=== PATIENT | male | born 1965 | race Caucasian/White ===

== ENCOUNTER 2019-10-10 17:31 | Inpatient (IN) ==
[2019-10-10] MEDS ORDERED: SOLU-MEDROL IV ONE (17:47)
[2019-10-10] MEDS ORDERED: DUONEB (A & A) INH ONE (17:47)
[2019-10-10] MEDS ORDERED: NS 1,000 ML IV ONE (18:04)
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
--- NOTE | 2019-10-10 18:15 | Diag Imaging Result Doc PS360 ---
EXAM: CHEST-1 VIEW 10/10/2019 HISTORY: Respiratory distress TECHNIQUE: AP portable at 1808 COMMENT: There is increased interstitial markings and pulmonary vascularity. This is worse than on 04/12/2018. IMPRESSION: Mild pulmonary edema. Electronically signed by Johnny Moore 10/10/2019 6:12 PM
[2019-10-10 18:19] LABS: BASO# 0.01 X1000 (0.0-0.2); BASO% 0.1 % (0.0-0.8); EOS# 0.02 X1000 (0.0-0.7); EOS% 0.2 % (0.0-10.0); HEMATOCRIT 37.1 % (42.0-52.0); HEMOGLOBIN 12.4 g/dL (14.0-18.0); IMM GRAN# 0.03 X1000 (0.0-0.04); IMM GRAN% 0.3 % (0.0-0.5); LYMPH# 0.85 X1000 (1.2-3.4); LYMPH% 7.8 % (20.5-51.1); MCH 28.5 PG (27-31); MCHC 33.4 g/dL (33-37); MCV 85.3 FL (81-99); MONO# 1.14 X1000 (0.11-0.59); MONO% 10.4 % (1.7-9.3); MPV 9.4 FL (7.4-10.4); NEUT# 8.88 X1000 (1.4-6.5); NEUT% 81.2 % (42.2-75.2); PLT 232 X1000 (130-400); RBC 4.35 XMIL (4.7-6.1); RDW 12.3 % (11.5-14.5); WBC 10.93 X1000 (4.8-10.8)
[2019-10-10 18:22] LABS: ALLEN TEST NO; BE 0.8 mmoll (-3.0-3.0); BLOOD TYPE ARTERIAL; HCO3-(ACT) 25.5 mmoll (20.0-26.0); METHB 1.4 % (0.0-1.5); O2(CT) 16.8 mL/dL (15.0-23.0); O2HB 94.1 % (95.0-99.0); PCO2(98.6) 33 mmHg (35-45); PO2(98.6) 72 mmHg (60-100); SAMPLE BLOOD; SAO2 97.8 % (95.0-100.0); THB 12.7 g/dL (11.5-17.4); pH(98.6) 7.47 (7.35-7.45)
[2019-10-10 18:23] LABS: MODALITY SIMPLE MASK
[2019-10-10] MEDS ORDERED: LASIX IV ONE (18:38)
[2019-10-10 18:45] LABS: ESTIMATED GFR > 60
[2019-10-10] MEDS ORDERED: ZOSYN 4.5 GM in NS 100 ML IV ONE (18:45)
[2019-10-10] MEDS ORDERED: VANCOMYCIN 1 GM/NS 1 GM/250 ML IVPB IV ONE (18:45)
[2019-10-10] MEDS ORDERED: LEVAQUIN 750 MG/D5W 750 MG/150 ML IVPB IV ONE (18:46)
[2019-10-10 18:59] LABS: AGAP 17; ALB/GLOB RATIO 1.3; ALBUMIN 3.8 g/dL (3.5-5.0); ALKALINE PHOSPHATASE 46 U/L (32-122); BUN 13 mg/dL (8-22); CHLORIDE 86 mmol/L (98-107); COSMO 252; CREATININE 0.7 mg/dL (0.7-1.2); GLUCOSE 136 mg/dL (70-104); GOT 21 U/L (10-34); GPT 9 U/L (10-44); POTASSIUM 4.5 mmol/L (3.5-5.1); SODIUM 124 mmol/L (136-145); TCO2 21 mmol/L (25-35); TOTAL BILIRUBIN 0.44 mg/dL (0.20-1.00); TOTAL PROTEIN 6.8 g/dL (6.3-8.3)
[2019-10-10 19:14] LABS: AMYLASE 52 U/L (20-200); LIPASE 24 U/L (13-60)
--- NOTE | 2019-10-10 19:21 | Diag Imaging Result Doc PS360 ---
EXAM: CT ABDOMEN/PELVIS W/O CONTRAST 10/10/2019 HISTORY: vomiting TECHNIQUE: This exam was performed using automated exposure control, adjustment of mA or kV according to patient size, and/or use of iterative reconstruction technique. COMMENT: There are no previous studies available for comparison. There is ill-defined opacity in the left lower lobe which may represent pneumonia. There is some fluid in the distal esophagus and stomach. The possibility of aspiration cannot be excluded. There are granulomata in the spleen. There has been cholecystectomy. There is no evidence of nephrolithiasis or hydronephrosis. There is stool throughout the colon. The small bowel is not distended. There is a large amount of stool in the rectum. The urinary bladder is not distended. There is ankylosis of the sacroiliac joints. There is severe facet arthropathy in the lumbar spine. IMPRESSION: Left lower lobe pneumonia. Constipation with fecal impaction. Electronically signed by Johnny Moore 10/10/2019 7:18 PM
[2019-10-10 21:07] LABS: URINE SOURCE VOIDED
[2019-10-10 21:11] LABS: BILIRUBIN URINE NEGATIVE (NEGATIVE); BLOOD URINE MODERATE (NEGATIVE); COLOR YELLOW; GLUCOSE URINE NEGATIVE (NEGATIVE); KETONE URINE 10 mg/dL (NEGATIVE); LEUKOCYTES URINE NEGATIVE (NEGATIVE); NITRITE URINE NEGATIVE (NEGATIVE); PH URINE 6.5; PROTEIN URINE 30 mg/dL (NEGATIVE); SP GRAVITY URINE 1.018; TURBIDITY URINE CLEAR (CLEAR); UROBILINOGEN URINE NORMAL (NORMAL)
[2019-10-10 21:15] LABS: UR EPITHELIAL CELLS <10 /HPF (<10); URINE BACTERIA NEGATIVE /HPF; URINE RBC <10 /HPF (<10); URINE WBC <10 /HPF (<10)
[2019-10-10 21:22] LABS: URINE CASTS NONE SEEN; URINE CRYSTALS NONE SEEN; URINE YEAST NONE SEEN
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
[2019-10-10] MEDS ORDERED: LACTULOSE PO ONE (22:54)
[2019-10-10] MEDS: LACTULOSE PO SCH (22:54)
[2019-10-10] MEDS ORDERED: MOTRIN PO PRN (22:54)
[2019-10-10] MEDS ORDERED: DULCOLAX PR ONE (22:54)
[2019-10-10 23:15] LABS: INR 1.13; PROTIME 14.7 Seconds (11.0-16.0)
[2019-10-10 23:16] LABS: PTT 33.1 Seconds (22.3-41.8)
[2019-10-10] MEDS: LOVENOX SUBQ SCH (23:20)
[2019-10-10] MEDS: LIORESAL PO SCH (23:22)
[2019-10-10] MEDS: BUSPAR PO SCH (23:22)
[2019-10-10] MEDS: SENOKOT PO SCH (23:22)
[2019-10-10] MEDS: NS 1,000 ML IV SCH (23:43)
[2019-10-10] MEDS: DUONEB (A & A) INH SCH (23:56)
[2019-10-11 00:07] LABS: CK-MB 5.48 ng/mL (0.0-5.0)
[2019-10-11 02:50] LABS: AGAP 17; BUN 9 mg/dL (8-22); CALCIUM 9.1 mg/dL (8.8-10.2); CHLORIDE 91 mmol/L (98-107); COSMO 259; CREATININE 0.6 mg/dL (0.7-1.2); ESTIMATED GFR > 60; GLUCOSE 162 mg/dL (70-104); SODIUM 128 mmol/L (136-145); TCO2 20 mmol/L (25-35)
[2019-10-11] MEDS: DUONEB (A & A) INH SCH ×6 (03:34→23:30)
[2019-10-11] MEDS ORDERED: DULCOLAX PR ONE (05:00)
[2019-10-11] MEDS: ZOSYN 3.375 GM in NS 50 ML IV SCH ×3 (05:03→21:51)
[2019-10-11] MEDS: LACTULOSE PO SCH (05:04)
[2019-10-11 06:42] LABS: BASO# 0.01 X1000 (0.0-0.2); BASO% 0.1 % (0.0-0.8); HEMATOCRIT 39.9 % (42.0-52.0); HEMOGLOBIN 13.1 g/dL (14.0-18.0); IMM GRAN# 0.05 X1000 (0.0-0.04); IMM GRAN% 0.4 % (0.0-0.5); LYMPH# 0.34 X1000 (1.2-3.4); LYMPH% 2.6 % (20.5-51.1); MCH 28.5 PG (27-31); MCHC 32.8 g/dL (33-37); MCV 86.9 FL (81-99); MONO# 0.63 X1000 (0.11-0.59); MONO% 4.8 % (1.7-9.3); MPV 9.3 FL (7.4-10.4); NEUT% 92.1 % (42.2-75.2); PLT 223 X1000 (130-400); RBC 4.59 XMIL (4.7-6.1); RDW 12.4 % (11.5-14.5); WBC 13.03 X1000 (4.8-10.8)
[2019-10-11 07:26] LABS: BANDS 2 % (0-1); MONO 4 % (1-9); SEGS 94 % (42-75)
[2019-10-11 07:30] LABS: HEMOGLOBIN A1C 5.2 % (4.8-6.0)
[2019-10-11 07:33] LABS: TSH 1.18 uIUmL (0.27-4.20)
[2019-10-11] MEDS: SENOKOT PO SCH ×2 (09:25→22:03)
[2019-10-11] MEDS: BUSPAR PO SCH ×2 (09:25→21:49)
[2019-10-11] MEDS: DEPAKOTE ER PO SCH ×2 (09:25→13:11)
[2019-10-11] MEDS: LIORESAL PO SCH ×2 (09:25→21:50)
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
[2019-10-11] MEDS: NS 1,000 ML IV SCH (11:15)
[2019-10-11] MEDS: TYLENOL PO PRN (11:58)
[2019-10-11] MEDS ORDERED: VANCOMYCIN IV PER PHARMACY MISC SCH (15:15)
[2019-10-11] MEDS ORDERED: VANCOMYCIN 2,000 MG in NS 500 ML IV ONE (16:00)
[2019-10-11] MEDS: DEPAKOTE SPRINKLE PO SCH (17:07)
--- NOTE | 2019-10-11 18:24 | Diag Imaging Result Doc PS360 ---
EXAM: ABDOMEN FLAT/UPRIGHT 10/11/2019 HISTORY: possible ileus TECHNIQUE: Flat and upright abdomen COMMENT: There is colonic and small bowel gas including gas in the rectum. The stool which was present in the distal colon and rectum have apparently diminished in comparison with the time of the previous CT of 10/10/2019. IMPRESSION: Ileus. Improved constipation. Electronically signed by Johnny Moore 10/11/2019 6:21 PM
[2019-10-11] MEDS: LOVENOX SUBQ SCH (21:48)
[2019-10-12] MEDS ORDERED: CALMOSEPTINE OINTMENT TOP PRN (00:55)
[2019-10-12] MEDS: ZOSYN 3.375 GM in NS 50 ML IV SCH ×4 (02:15→22:12)
[2019-10-12] MEDS: TYLENOL PO PRN (03:40)
[2019-10-12] MEDS: DUONEB (A & A) INH SCH ×6 (03:50→23:50)
[2019-10-12 05:16] LABS: BASO# 0.02 X1000 (0.0-0.2); BASO% 0.2 % (0.0-0.8); HEMATOCRIT 39.9 % (42.0-52.0); HEMOGLOBIN 13.1 g/dL (14.0-18.0); IMM GRAN# 0.03 X1000 (0.0-0.04); IMM GRAN% 0.3 % (0.0-0.5); LYMPH# 0.57 X1000 (1.2-3.4); MCH 28.6 PG (27-31); MCHC 32.8 g/dL (33-37); MCV 87.1 FL (81-99); MONO# 1.32 X1000 (0.11-0.59); MONO% 11.5 % (1.7-9.3); MPV 9.2 FL (7.4-10.4); NEUT# 9.49 X1000 (1.4-6.5); PLT 277 X1000 (130-400); RBC 4.58 XMIL (4.7-6.1); RDW 12.7 % (11.5-14.5); WBC 11.43 X1000 (4.8-10.8)
[2019-10-12 05:57] LABS: AGAP 14; ALB/GLOB RATIO 1.3; ALBUMIN 3.5 g/dL (3.5-5.0); ALKALINE PHOSPHATASE 41 U/L (32-122); BUN 19 mg/dL (8-22); CALCIUM 8.5 mg/dL (8.8-10.2); CHLORIDE 98 mmol/L (98-107); COSMO 275; CREATININE 0.6 mg/dL (0.7-1.2); ESTIMATED GFR > 60; GLUCOSE 112 mg/dL (70-104); GOT 22 U/L (10-34); GPT 9 U/L (10-44); SODIUM 136 mmol/L (136-145); TCO2 24 mmol/L (25-35); TOTAL BILIRUBIN 0.28 mg/dL (0.20-1.00); TOTAL PROTEIN 6.2 g/dL (6.3-8.3)
[2019-10-12] MEDS ORDERED: TYLENOL PR ONE (06:00)
[2019-10-12 06:36] LABS: ALLEN TEST YES; BE 1.1 mmoll (-3.0-3.0); BLOOD TYPE ARTERIAL; HCO3-(ACT) 25.7 mmoll (20.0-26.0); METHB 1.3 % (0.0-1.5); O2(CT) 17.4 mL/dL (15.0-23.0); PCO2(98.6) 37 mmHg (35-45); PO2(98.6) 63 mmHg (60-100); SAMPLE BLOOD; SAO2 95.7 % (95.0-100.0); THB 13.3 g/dL (11.5-17.4); pH(98.6) 7.44 (7.35-7.45)
[2019-10-12 06:39] LABS: MODALITY CANNULA
--- NOTE | 2019-10-12 07:26 | Diag Imaging Result Doc PS360 ---
EXAM: CHEST-PORTABLE INDICATION: Dyspnea, Hypoxia TECHNIQUE: One view COMPARISON: 10/10/2019 FINDINGS: There has been interval improvement of the mild increased interstitial markings and increased central vasculature suggesting improved mild pulmonary edema. No new consolidation is identified. Cardiac silhouette is stable. IMPRESSION: Interval improvement. Electronically signed by Clint Celis 10/12/2019 7:24 AM
[2019-10-12] MEDS ORDERED: CLINIMIX E 4.25%-5% SOLUTION 1,000 ML IV SCH (08:00)
[2019-10-12] MEDS: CLINIMIX E 4.25%-5% SOLUTION 1,000 ML IV SCH ×2 (08:35→22:12)
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
[2019-10-12] MEDS: KEPPRA 750 MG in NS 100 ML IV SCH ×2 (10:32→22:13)
[2019-10-12] MEDS: ROBAXIN 1,000 MG in NS 50 ML IV SCH ×2 (10:32→16:28)
[2019-10-12] MEDS: LIORESAL PO SCH ×2 (10:33→21:46)
[2019-10-12] MEDS: BUSPAR PO SCH ×2 (10:33→21:45)
[2019-10-12] MEDS: SENOKOT PO SCH ×2 (10:34→21:45)
[2019-10-12] MEDS: PEPCID IV SCH ×2 (10:36→22:12)
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
--- NOTE | 2019-10-12 12:36 | Diag Imaging Result Doc PS360 ---
BA SWALLOW W/VIDEO SPEECH THER - 10/12/2019 INDICATION: Dysphagia TECHNIQUE: Total fluoroscopy time was 10 seconds. 87 images were obtained. COMPARISON: None FINDINGS: There was poor control of thin liquids, with significant aspiration immediately. This was followed by an extensive cough. Pureed solid consistency was also administered, which also resulted in aspiration of a rather large quantity followed by coughing. IMPRESSION: Severe aspiration with thin liquids and pureed solid consistencies. Electronically signed by Alberto Mckeon 10/12/2019 12:33 PM
[2019-10-12] MEDS: VANCOMYCIN 1,500 MG in NS 250 ML IV SCH (13:39)
[2019-10-12] MEDS: LOVENOX SUBQ SCH (21:45)
[2019-10-12] MEDS: DULCOLAX PR SCH (22:12)
[2019-10-13] MEDS: ZOSYN 3.375 GM in NS 50 ML IV SCH (01:42)
[2019-10-13] MEDS: ROBAXIN 1,000 MG in NS 50 ML IV SCH ×3 (01:42→17:29)
[2019-10-13] MEDS: VANCOMYCIN 1,500 MG in NS 250 ML IV SCH (03:17)
[2019-10-13] MEDS: DUONEB (A & A) INH SCH ×6 (03:45→23:40)
[2019-10-13 06:41] LABS: AGAP 11; BUN 13 mg/dL (8-22); CALCIUM 8.5 mg/dL (8.8-10.2); CHLORIDE 94 mmol/L (98-107); COSMO 265; CREATININE 0.5 mg/dL (0.7-1.2); ESTIMATED GFR > 60; GLUCOSE 104 mg/dL (70-104); MAGNESIUM 1.6 mg/dL (1.5-2.7); POTASSIUM 3.3 mmol/L (3.5-5.1); SODIUM 132 mmol/L (136-145); TCO2 27 mmol/L (25-35)
[2019-10-13 07:14] LABS: BASO# 0.02 X1000 (0.0-0.2); BASO% 0.3 % (0.0-0.8); EOS# 0.02 X1000 (0.0-0.7); EOS% 0.3 % (0.0-10.0); HEMATOCRIT 36.8 % (42.0-52.0); HEMOGLOBIN 11.9 g/dL (14.0-18.0); IMM GRAN# 0.02 X1000 (0.0-0.04); IMM GRAN% 0.3 % (0.0-0.5); LYMPH# 1.41 X1000 (1.2-3.4); LYMPH% 20.3 % (20.5-51.1); MCH 28.3 PG (27-31); MCHC 32.3 g/dL (33-37); MCV 87.6 FL (81-99); MONO# 1.11 X1000 (0.11-0.59); MPV 9.1 FL (7.4-10.4); NEUT# 4.35 X1000 (1.4-6.5); NEUT% 62.8 % (42.2-75.2); PLT 238 X1000 (130-400); RDW 12.7 % (11.5-14.5); WBC 6.93 X1000 (4.8-10.8)
[2019-10-13] MEDS ORDERED: CLINIMIX E 4.25%-5% SOLUTION 1,000 ML IV SCH (07:38)
[2019-10-13] MEDS: MAXIPIME 2 GM/NS 2 GM/100 ML IVPB IV SCH ×2 (08:21→15:51)
[2019-10-13] MEDS: POTASSIUM CHLORIDE 20 MEQ in NS 1,000 ML IV SCH (08:21)
[2019-10-13] MEDS: DULCOLAX PR SCH ×2 (08:22→21:31)
[2019-10-13] MEDS: KEPPRA 750 MG in NS 100 ML IV SCH ×2 (08:22→21:32)
[2019-10-13] MEDS: SENOKOT PO SCH ×2 (08:23→21:33)
[2019-10-13] MEDS: LIORESAL PO SCH ×2 (08:23→21:33)
[2019-10-13] MEDS: BUSPAR PO SCH ×2 (08:23→21:32)
[2019-10-13] MEDS ORDERED: KEFZOL 1 GM/D5W 1 GM/50 ML IVPB ONE ×2 (10:01)
[2019-10-13] MEDS ORDERED: DIPRIVAN 1% ONE (10:07)
[2019-10-13] MEDS ORDERED: XYLOCAINE-MPF 2% ONE (10:07)
--- NOTE | 2019-10-13 10:36 | ENDOSCOPY OPERATIVE NOTE ---
[facility] ENDOSCOPY OPERATIVE NOTE , EGD PROCEDURE REPORT EXAM DATE: 10/13/2019 PATIENT NAME: Ty Kelly MR#: [id number] BIRTHDATE: 1965 ATTENDING: Javid Baxter MD STATUS: inpatient RESIDENTIAL SUBCONTRACTOR: INDICATIONS: The patient is a 54 yr old male here for an EGD due to dysphagia, pharyngeal. PROCEDURE PERFORMED: EGD, diagnostic MEDICATIONS: Per Anesthesia ESTIMATED BLOOD LOSS: None CONSENT: The patient understands the risks and benefits of the procedure and understands that these r isks include, but are not limited to: sedation, allergic reaction, infection, perforation and/or bleeding. Alternative means of evaluation and treatment include, among others: physical exam, x-rays, and/or surgical intervention. The patient elects to proceed with this endoscopic procedure. DESCRIPTION OF PROCEDURE: During pre-op preparation period all mechanical and medical equipment was c hecked for proper function. Hand hygiene and appropriate measures for infection prevention was taken. After the risks, benefits and alternatives of the procedure were thoroughly explained, Informed consent was verified, confirmed and timeout was successfully executed by the treatment team. The patient was anesthetized with topical anesthesia and the endoscope was introduced through the mouth and advanced to the pharynx. The procedure was aborted given develop ment of hypoxia, copious secretion, and inability to pass the endoscope due to poor cervical neck mobility. Multiple a ttempts were made to pass the endoscope, which was limited by hypoxia and cough. Retroflexion of the stomach was not pe rformed. The patient's toleration of the procedure was poor. ADVERSE EVENTS: Hypoxemia occurred IMPRESSIONS: Dysphagia RECOMMENDATIONS: 1. Recommend NGT placement and enteral tube feeds per sole layer hand recs 2. We can reattempt PEG tube placement once patient is more stable from a respiratory standpoint 3. Will follow with you. Please call with questions REPEAT EXAM: Javid Baxter MD eSigned: Javid Baxter MD 10/13/2019 10:36 AM CC: CPT CODES: ICD CODES: The ICD and CPT codes recommended by this software are interpretations from the data that the [facility] staff has captured with the software. The verification of the translation of this report to the ICD and CPT co halina and modifiers is the sole responsibility of the health care institution and practicing physician where this report was generated. [employer] will not be held responsible for the validity of the ICD and CPT codes i ncluded on this report. AMA assumes no liability for data contained or not contained herein. CPT is a registered tra demark of the [employer].
--- NOTE | 2019-10-13 12:07 | PROGRESS NOTE ---
DATE: 10/13/2019 SUBJECTIVE: Patient is lying in bed, as per the patient he feels better. Family members at the bedside. He will have an endoscopic procedure today with a PEG tube placement, due to severe dysphagia, also he has bacteremia due to Staphylococcus capitis, I will stop the Zosyn and I will start this patient on cefepime which has good coverage for aspiration pneumonia and also for the bacteremia. Upon discharge, this patient can be discharged on levofloxacin 500 mg to complete 2 weeks of treatment. OBJECTIVE: Vital Signs: Temperature 98.9 degrees, pulse 97, respiratory rate 23, blood pressure 134/85, oxygen saturation 96 on 2 L of nasal cannula. HEENT: Head normocephalic, no trauma, PERRLA. Neck: Supple, it is a little bit hard to move. His neck is short and thick. Central trachea. He does have a lexi from previous tracheostomy. Chest: Decreased breath sounds bilaterally with some rhonchi at the left base. Cardiovascular: RRR. Abdomen: Soft, slightly protuberant, nontender. Positive bowel sounds. Extremities: His lower extremity tonicity is increased. He is contracted, and it is really hard to move his joints, trace edema. Neurological: This patient has left spastic hemiplegia, but he can move his right upper extremity a little bit. I would say 3/5 but it is really hard from him to control the movement as well. LABORATORY: WBC 6.9, hemoglobin 11.9, hematocrit 36.8, platelets 238,000. Sodium 132, potassium 3.3, chloride 94, bicarbonate 27, BUN 13, creatinine 0.5, glucose 104, calcium 8.5, magnesium 1.6. ASSESSMENT AND PLAN: 1. Aspiration pneumonia due to severe dysphagia, he had a modified swallow evaluation that showed severe dysphagia, he will go today for an EGD and PEG tube placement. 2. Bacteremia due to Staphylococcus capitis, I have stopped the Zosyn and I will place this patient on cefepime, I will monitor this closely. 3. Acute respiratory failure due to aspiration pneumonia. Continue with oxygen supplementation. I will stop the Zosyn and put this patient on cefepime which has already good coverage. 4. Hyponatremia. This is chronic, stable. 5. 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 Aware. 6. Constipation and impaction. Gastroenterology Department on board. He has been having multiple bowel movements now. 7. Post traumatic brain injury seizure disorder, I stopped all his medications because he was not able to tolerate p.o. and I put him on Keppra twice a day. We will monitor this closely. 8. Hypokalemia, I will start this patient on a little bit of normal saline with potassium to replace this electrolyte, also his chloride is a bit low. 9. This patient is full code. cc: Suraj Turcios MD
[2019-10-13] MEDS: PEPCID IV SCH ×2 (14:01→21:38)
--- NOTE | 2019-10-13 15:07 | Diag Imaging Result Doc PS360 ---
EXAM: CHEST-PORTABLE 10/13/2019 HISTORY: NG tube placement TECHNIQUE: AP portable at 1451 COMMENT: There is an NG tube with its tip in the stomach. There is increased interstitial opacity generally which has worsened since 10/12/2019. IMPRESSION: Pulmonary edema and/or pneumonia. Electronically signed by Johnny Moore 10/13/2019 3:04 PM
[2019-10-13] MEDS: LOVENOX SUBQ SCH (21:31)
[2019-10-14] MEDS: MAXIPIME 2 GM/NS 2 GM/100 ML IVPB IV SCH ×4 (00:35→23:26)
[2019-10-14] MEDS: ROBAXIN 1,000 MG in NS 50 ML IV SCH ×4 (00:35→23:29)
[2019-10-14] MEDS: DUONEB (A & A) INH SCH ×6 (04:19→22:57)
[2019-10-14 06:02] LABS: AGAP 13; ALBUMIN 3.2 g/dL (3.5-5.0); BUN 10 mg/dL (8-22); CHLORIDE 92 mmol/L (98-107); COSMO 257; CREATININE 0.4 mg/dL (0.7-1.2); ESTIMATED GFR > 60; GLUCOSE 89 mg/dL (70-104); MAGNESIUM 1.5 mg/dL (1.5-2.7); POTASSIUM 3.5 mmol/L (3.5-5.1); SODIUM 129 mmol/L (136-145); TCO2 24 mmol/L (25-35)
--- NOTE | 2019-10-14 07:41 | Diag Imaging Result Doc PS360 ---
EXAM: CHEST-PORTABLE 10/13/2019 HISTORY: NG placement TECHNIQUE: AP portable upright at 2353 COMMENT: There is an NG tube with its tip in the stomach. The ill-defined opacities which were present in the lower lung spangler on 10/13/2019 have diminished somewhat. Some of the difference in appearance may be due to patient motion in technique however. IMPRESSION: NG tube in the stomach. Electronically signed by Johnny Moore 10/14/2019 7:39 AM
[2019-10-14] MEDS: KEPPRA 750 MG in NS 100 ML IV SCH ×2 (09:02→20:26)
[2019-10-14] MEDS: DULCOLAX PR SCH ×2 (09:07→20:23)
[2019-10-14] MEDS: LIORESAL PO SCH ×2 (09:07→20:23)
[2019-10-14] MEDS: BUSPAR PO SCH ×2 (09:07→20:24)
[2019-10-14] MEDS: SENOKOT PO SCH ×2 (09:07→20:23)
[2019-10-14] MEDS: PEPCID IV SCH ×2 (10:39→23:19)
--- NOTE | 2019-10-14 11:11 | PROGRESS NOTE ---
DATE: 10/14/2019 SUBJECTIVE: This patient is lying comfortably in bed. He is still coughing, family members at the bedside. We tried to put a PEG tube yesterday, but it was difficult because of his neck stiffness. We are planning to do an endoscopic exam with PEG tube placement on Saturday. OBJECTIVE: Vital Signs: Temperature 98 degrees, pulse 83, respiratory rate 15, blood pressure 174/80, oxygen saturation 100% on room air. HEENT: Head normocephalic, no trauma. PERRLA. Neck: His neck is not supple, he has some rigidity. Short and thick, central trachea. He does have a lexi from previous tracheostomy. Chest: Decreased breath sounds bilaterally with some rhonchi at the bases mostly on the right side. Cardiovascular: Regular rate and rhythm. Abdomen: Soft, slightly protuberant, nontender. Positive bowel sounds. Extremities: His lower extremity tonicity is increased. He is contracted, and it is really hard to move his joints. Trace edema. Neurological: This patient has left spastic hemiplegia. He can move the right upper extremity a little bit. I would say 3/5, but it is really hard for him to control his movements. LABORATORY: Sodium 129, potassium 3.5, chloride 92, bicarbonate 24, BUN 10, creatinine 0.4, glucose 89, calcium 9, magnesium 1.5. ASSESSMENT AND PLAN: 1. Aspiration pneumonia due to severe dysphagia. He had a modified swallow evaluation that showed this problem. He went for an EGD yesterday with PEG tube placement, but it was really difficult to pass the neck due to rigidity, we are planning to do a new endoscopic exam on Saturday. 2. Bacteremia due to a Staphylococcus capitis. I have placed this patient on cefepime and I will get a new blood culture tomorrow morning. 3. Acute respiratory failure due to aspiration pneumonia, hypoxemic, continue oxygen supplementation. 4. Hyponatremia, this is chronic, stable. 5. 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 6. Constipation and impaction. He has been having bowel movements. 7. Post traumatic brain injury seizure disorder. I stopped all his medications because he was not able to tolerate p.o. I put him on Keppra twice a day and he seems to be doing fine. Once he has a PEG tube we will re-initiate his home medications. 8. Hypokalemia. Better, but I will continue with normal saline and potassium. 9. This patient is Full Code. cc: Suraj Turcios MD
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
[2019-10-14] MEDS: ZOFRAN IV PRN (15:18)
[2019-10-14] MEDS: POTASSIUM CHLORIDE 20 MEQ in NS 1,000 ML IV SCH (15:20)
[2019-10-14] MEDS: LOVENOX SUBQ SCH (20:24)
[2019-10-15] MEDS: ZOFRAN IV PRN ×2 (01:03→09:00)
[2019-10-15] MEDS: DUONEB (A & A) INH SCH ×6 (03:17→23:32)
[2019-10-15 05:25] LABS: BASO# 0.04 X1000 (0.0-0.2); BASO% 0.7 % (0.0-0.8); EOS# 0.13 X1000 (0.0-0.7); EOS% 2.1 % (0.0-10.0); HEMATOCRIT 34.5 % (42.0-52.0); HEMOGLOBIN 11.2 g/dL (14.0-18.0); IMM GRAN# 0.08 X1000 (0.0-0.04); IMM GRAN% 1.3 % (0.0-0.5); LYMPH# 1.98 X1000 (1.2-3.4); LYMPH% 32.7 % (20.5-51.1); MCH 27.9 PG (27-31); MCHC 32.5 g/dL (33-37); MONO# 0.83 X1000 (0.11-0.59); MONO% 13.7 % (1.7-9.3); NEUT% 49.5 % (42.2-75.2); PLT 260 X1000 (130-400); RBC 4.01 XMIL (4.7-6.1); WBC 6.06 X1000 (4.8-10.8)
[2019-10-15] MEDS: TYLENOL PO PRN (06:03)
[2019-10-15] MEDS: MAXIPIME 2 GM/NS 2 GM/100 ML IVPB IV SCH ×2 (08:49→16:58)
[2019-10-15] MEDS: ROBAXIN 1,000 MG in NS 50 ML IV SCH ×2 (08:52→17:04)
[2019-10-15] MEDS: BUSPAR PO SCH ×2 (09:04→21:13)
[2019-10-15] MEDS: SENOKOT PO SCH ×2 (09:05→21:13)
[2019-10-15] MEDS: DULCOLAX PR SCH ×2 (09:06→21:14)
[2019-10-15] MEDS: LIORESAL PO SCH ×2 (09:07→21:13)
[2019-10-15] MEDS: KEPPRA 750 MG in NS 100 ML IV SCH ×2 (09:30→21:26)
[2019-10-15 09:53] LABS: AGAP 14; BUN 9 mg/dL (8-22); CALCIUM 8.8 mg/dL (8.8-10.2); CHLORIDE 94 mmol/L (98-107); COSMO 262; CREATININE 0.4 mg/dL (0.7-1.2); ESTIMATED GFR > 60; GLUCOSE 115 mg/dL (70-104); MAGNESIUM 1.6 mg/dL (1.5-2.7); PHOSPHORUS 3.5 mg/dL (2.7-4.5); POTASSIUM 4.3 mmol/L (3.5-5.1); SODIUM 131 mmol/L (136-145); TCO2 23 mmol/L (25-35)
[2019-10-15] MEDS: PEPCID IV SCH ×2 (10:10→22:57)
--- NOTE | 2019-10-15 10:30 | PROGRESS NOTE ---
DATE: 10/15/2019 SUBJECTIVE: This patient is lying comfortably in bed. Apparently, he has been complaining of some nausea, but he is tolerating the feeding tube really good. We tried to put a PEG tube 2 days ago but it was really difficult because of his neck stiffness and secretion. We are planning to do an endoscopic procedure tomorrow again with PEG tube placement. OBJECTIVE: Vital Signs: Temperature 97.5 degrees, pulse 85, respiratory rate 16, blood pressure 123/78. Oxygen saturation 99 on 2 L of nasal cannula. HEENT: Head normocephalic, no trauma. PERRLA. Neck: He has some contraction, rigidity. His neck is short. Central trachea. He does have a lexi from previous tracheostomy. Chest: Decreased breath sounds bilaterally with some rhonchi at the right base. Cardiovascular: Regular rate and rhythm. Abdomen: Soft, slightly protuberant, nontender. Positive bowel sounds. Extremities: Lower extremity tonicity is increased. He has contractions. It is really hard to move his joints. Trace edema. Neurological: The patient has left spastic hemiplegia. He can move the right upper extremity a little bit. I would say 3/5 strength, but it is really hard from for him to control his movements. LABORATORY: WBC 6, hemoglobin 11.2, hematocrit 34.5, platelets 260,000. Pending BMP magnesium and phosphorus today. ASSESSMENT AND PLAN: 1. Aspiration pneumonia due to severe dysphagia. He had a modified swallow evaluation that showed a severe problem, he went for an EGD 2 days ago for a PEG tube placement, but he was really difficult to pass the neck due to his rigidity and secretions. We are planning to do a new endoscopic exam and PEG tube placement tomorrow. 2. Bacteremia due to Staphylococcus capitis. This has been discussed briefly with Infectious Disease Department. He agreed to put this patient on cefepime to cover his new aspiration pneumonia and his Staphylococcus capitis. Upon discharge, as per Dr. Cain, he can be placed on Levaquin, which is also sensitive to this bacteria. 3. Acute respiratory failure due to aspiration pneumonia, hypoxemic, continue oxygen supplementation. 4. Hyponatremia, this is chronic, stable. 5. Traumatic brain injury with spastic left-sided hemiplegia with some with also right-sided weakness as well. 6. Constipation and impaction, I have ordered Dulcolax suppository twice a day. He had a bowel movement yesterday. 7. Post traumatic brain injury seizure disorder, I have stopped all his medication because he was not able to tolerate p.o. I put this patient on Keppra twice a day and he seems to be tolerating this. Once he has a PEG tube, we will re-initiate his home medications. 8. Hypokalemia. Pending laboratory work today. 9. This patient is Full Code. cc: Suraj Turcios MD
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
[2019-10-15] MEDS: POTASSIUM CHLORIDE 20 MEQ in NS 1,000 ML IV SCH (17:05)
[2019-10-15] MEDS: LOVENOX SUBQ SCH (21:10)
[2019-10-16] MEDS: TYLENOL PO PRN (00:43)
[2019-10-16] MEDS: DUONEB (A & A) INH SCH ×6 (02:49→23:05)
[2019-10-16 05:34] LABS: BASO# 0.08 X1000 (0.0-0.2); EOS# 0.35 X1000 (0.0-0.7); EOS% 4.3 % (0.0-10.0); HEMATOCRIT 38.3 % (42.0-52.0); HEMOGLOBIN 12.5 g/dL (14.0-18.0); IMM GRAN# 0.15 X1000 (0.0-0.04); IMM GRAN% 1.8 % (0.0-0.5); LYMPH# 2.29 X1000 (1.2-3.4); LYMPH% 28.1 % (20.5-51.1); MCHC 32.6 g/dL (33-37); MCV 85.7 FL (81-99); MONO# 1.01 X1000 (0.11-0.59); MONO% 12.4 % (1.7-9.3); MPV 8.9 FL (7.4-10.4); NEUT# 4.27 X1000 (1.4-6.5); NEUT% 52.4 % (42.2-75.2); PLT 361 X1000 (130-400); RBC 4.47 XMIL (4.7-6.1); RDW 12.1 % (11.5-14.5); WBC 8.15 X1000 (4.8-10.8)
[2019-10-16 05:50] LABS: AGAP 12; BUN 7 mg/dL (8-22); CALCIUM 9.1 mg/dL (8.8-10.2); CHLORIDE 94 mmol/L (98-107); COSMO 263; CREATININE 0.5 mg/dL (0.7-1.2); ESTIMATED GFR > 60; GLUCOSE 104 mg/dL (70-104); MAGNESIUM 1.5 mg/dL (1.5-2.7); PHOSPHORUS 2.7 mg/dL (2.7-4.5); POTASSIUM 3.8 mmol/L (3.5-5.1); SODIUM 132 mmol/L (136-145); TCO2 26 mmol/L (25-35)
--- NOTE | 2019-10-16 07:08 | Diag Imaging Result Doc PS360 ---
EXAM: CHEST-PORTABLE 10/16/2019 HISTORY: dyspnea TECHNIQUE: AP portable at 0628 COMMENT: There is an NG tube with its tip in the stomach. There is a granuloma in the right lower lobe. Compared to 10/13/2019 the lungs are better expanded and the interstitial opacities which were present previously are no longer present. IMPRESSION: No acute disease. Electronically signed by Johnny Moore 10/16/2019 7:06 AM
[2019-10-16 07:09] LABS: EOS 2 % (1-10); LARGE PLATELETS 1+; LYMPHS 22 % (21-51); MONO 4 % (1-9); SEGS 62 % (42-75)
[2019-10-16] MEDS ORDERED: DIPRIVAN 1% ONE (08:25)
[2019-10-16] MEDS ORDERED: ROBINUL ONE (08:31)
[2019-10-16] MEDS ORDERED: ZEMURON ONE (08:58)
[2019-10-16] MEDS ORDERED: XYLOCAINE-MPF 2% ONE (08:58)
[2019-10-16] MEDS ORDERED: BRIDION ONE (09:02)
--- NOTE | 2019-10-16 09:09 | ENDOSCOPY OPERATIVE NOTE ---
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 PROCEDURE PERFORMED: EGD w/ biopsy MEDICATIONS: Per Anesthesia ESTIMATED BLOOD LOSS: None CONSENT: The patient understands the risks and benefits of the procedure and understands that these r isks include, but are not limited to: sedation, allergic reaction, infection, perforation and/or bleeding. Alternative means of evaluation and treatment include, among others: physical exam, x-rays, and/or surgical intervention. The patient elects to proceed with this endoscopic procedure. DESCRIPTION OF PROCEDURE: During pre-op preparation period all mechanical and medical equipment was c hecked for proper function. Hand hygiene and appropriate measures for infection prevention was taken. After the risks, benefits and alternatives of the procedure were thoroughly explained, Informed consent was verified, confirmed and timeout was successfully executed by the treatment team. The patient was anesthetized with topical anesthesia and the CI84-r31 ([id number]) endoscope was introduced through the mouth and advanced to the second portion of the duoden um. PEG tube placement was aborted given inability to transluminate in abdomen. Translumination was seen underneat h chest wall and at sternum. Retroflexion was performed in the stomach and revealed no abnormalities. The gastroscope was then slowly withdrawn and removed. The patient's toleration of the procedure was excellent. ESOPHAGUS: There was short segment Gustafson's esophagus found. There was no nodular mucosa noted in t he Gustafson's segment. STOMACH: Mild gastritis (inflammation) was found in the entire examined stomach. A biopsy was perfor med using cold forceps. Sample sent for histology. DUODENUM: The duodenum was normal. ADVERSE EVENTS: There were no complications. IMPRESSIONS: 1. There was short segment Gustafson's esophagus found 2. Gastritis (inflammation) was found in the entire examined stomach; biopsy was performed 3. The duodenum was normal RECOMMENDATIONS: 1. Await biopsy results 2. Recommend surgical consultation for surgical PEG placement 3. Recommend PPI once daily REPEAT EXAM: Javid Baxter MD eSigned: Javid Baxter MD 10/16/2019 9:09 AM CC: CPT CODES: ICD CODES: The ICD and CPT codes recommended by this software are interpretations from the data that the [facility] staff has captured with the software. The verification of the translation of this report to the ICD and CPT co halina and modifiers is the sole responsibility of the health care institution and practicing physician where this report was generated. [employer] will not be held responsible for the validity of the ICD and CPT codes i ncluded on this report. [facility] assumes no liability for data contained or not contained herein. CPT is a registered tra demark of the [employer]. PATIENT NAME: Ty Kelly MR#: [id number]
[2019-10-16] MEDS ORDERED: MORPHINE ONE ×2 (09:16→09:28)
[2019-10-16] MEDS: ROBAXIN 1,000 MG in NS 50 ML IV SCH ×4 (10:08→17:27)
[2019-10-16] MEDS: POTASSIUM CHLORIDE 20 MEQ in NS 1,000 ML IV SCH (10:10)
[2019-10-16] MEDS: LIORESAL PO SCH ×3 (10:11→20:52)
[2019-10-16] MEDS: SENOKOT PO SCH ×3 (10:11→20:51)
[2019-10-16] MEDS: BUSPAR PO SCH ×3 (10:11→20:52)
[2019-10-16] MEDS: DULCOLAX PR SCH ×3 (10:12→20:54)
[2019-10-16] MEDS: SODIUM CHLORIDE 0.9% INJ SCH (11:46)
[2019-10-16] MEDS: KEPPRA 750 MG in NS 100 ML IV SCH ×2 (11:46→20:39)
[2019-10-16] MEDS: PEPCID IV SCH ×2 (11:46→23:20)
[2019-10-16] MEDS: MAXIPIME 2 GM/NS 2 GM/100 ML IVPB IV SCH ×3 (12:30→21:08)
[2019-10-16] MEDS ORDERED: CLINIMIX E 4.25%-5% SOLUTION 1,000 ML IV SCH (16:45)
[2019-10-16] MEDS: LIPOSYN 20% 250 ML IV SCH (18:04)
--- NOTE | 2019-10-16 19:52 | PROGRESS NOTE ---
DATE: 10/16/2019 SUBJECTIVE: This morning Mr. Kelly remained the same. The mother and sister were at the bedside. He underwent EGD with possible tube placement; however, they have been unable to put a PEG tube given inability to transilluminate in abdomen. OBJECTIVE: Current vitals: Blood pressure is 150/85, pulse of 85, respirations 20, temperature 97.5 degrees. General: Mr. Kelly is a 54-year-old gentleman. He is in bed, no distress. HEENT: Mucosa is pink and moist. Anicteric. Acyanotic. Neck: Supple. Chest: Good air entry bilaterally. No crepitations. No rhonchi. Cardiovascular: Regular rate and rhythm. Gastrointestinal: Abdomen is soft, distended but nontender. Bowel sounds present. Central nervous system: Patient is awake, alert. He has a dysarthric speech, and he has spastic contraction of all extremities from previous TBI. LABORATORY DATA: Reviewed. There is a mild normocytic anemia, otherwise unremarkable. CBC and chemistry also reviewed. ASSESSMENT: 1. Aspiration pneumonia secondary to severe dysphagia. 2.Staphylococcus capitis bacteremia. Patient is on IV antimicrobial therapy. 3. Acute hypoxemic respiratory failure secondary to aspiration pneumonia. 4. Constipation with fecal impaction. We will continue with bowel regimen. 5. 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 6. Protein calorie malnutrition with prealbumin of 11.6. Mr. Kelly is fairly stable. I think he is at his baseline. We are going to continue currently with the Clinimix and lipid infusion. Surgery has been consulted for surgical tube placement. cc: Michael Champion MD [facility]
[2019-10-16] MEDS: LOVENOX SUBQ SCH (20:40)
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
[2019-10-17] MEDS: ROBAXIN 1,000 MG in NS 50 ML IV SCH ×3 (03:01→18:37)
[2019-10-17] MEDS: DUONEB (A & A) INH SCH ×6 (03:08→23:42)
[2019-10-17] MEDS: MAXIPIME 2 GM/NS 2 GM/100 ML IVPB IV SCH ×3 (04:27→21:00)
[2019-10-17 08:26] LABS: AGAP 11; ALBUMIN 3.8 g/dL (3.5-5.0); BUN 10 mg/dL (8-22); CALCIUM 9.3 mg/dL (8.8-10.2); CHLORIDE 91 mmol/L (98-107); COSMO 258; CREATININE 0.5 mg/dL (0.7-1.2); ESTIMATED GFR > 60; GLUCOSE 105 mg/dL (70-104); MAGNESIUM 1.5 mg/dL (1.5-2.7); PHOSPHORUS 3.4 mg/dL (2.7-4.5); POTASSIUM 4.2 mmol/L (3.5-5.1); SODIUM 129 mmol/L (136-145); TCO2 27 mmol/L (25-35)
[2019-10-17] MEDS: POTASSIUM CHLORIDE 20 MEQ in NS 1,000 ML IV SCH (08:36)
[2019-10-17] MEDS: DULCOLAX PR SCH ×2 (08:41→21:02)
[2019-10-17] MEDS: KEPPRA 750 MG in NS 100 ML IV SCH ×2 (09:23→21:02)
[2019-10-17] MEDS: PEPCID IV SCH ×2 (10:15→22:28)
[2019-10-17] MEDS: BUSPAR PO SCH ×2 (10:28→20:16)
[2019-10-17] MEDS: SENOKOT PO SCH ×2 (10:28→20:16)
[2019-10-17] MEDS: LIORESAL PO SCH ×2 (10:28→20:16)
[2019-10-17] MEDS ORDERED: BLISTEX MEDICATED BERRY LIP BALM TOP PRN (10:47)
[2019-10-17] MEDS: CLINIMIX E 4.25%-5% SOLUTION 1,000 ML IV SCH (13:50)
[2019-10-17] MEDS: LIPOSYN 20% 250 ML IV SCH (18:37)
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
[2019-10-17] MEDS: LOVENOX SUBQ SCH (21:02)
[2019-10-18] MEDS: ROBAXIN 1,000 MG in NS 50 ML IV SCH ×3 (01:52→16:59)
[2019-10-18] MEDS: DUONEB (A & A) INH SCH ×6 (03:22→23:04)
[2019-10-18] MEDS: MAXIPIME 2 GM/NS 2 GM/100 ML IVPB IV SCH ×3 (03:30→20:47)
[2019-10-18 06:23] LABS: HEMATOCRIT 36.5 % (42.0-52.0); HEMOGLOBIN 12.1 g/dL (14.0-18.0); MCH 28.8 PG (27-31); MCHC 33.2 g/dL (33-37); MCV 86.9 FL (81-99); MPV 9.1 FL (7.4-10.4); RBC 4.2 XMIL (4.7-6.1); RDW 12.6 % (11.5-14.5); WBC 7.55 X1000 (4.8-10.8)
[2019-10-18 06:42] LABS: AGAP 11; ALBUMIN 3.6 g/dL (3.5-5.0); BUN 13 mg/dL (8-22); CALCIUM 9.4 mg/dL (8.8-10.2); CHLORIDE 96 mmol/L (98-107); COSMO 269; CREATININE 0.5 mg/dL (0.7-1.2); ESTIMATED GFR > 60; GLUCOSE 107 mg/dL (70-104); PHOSPHORUS 3.8 mg/dL (2.7-4.5); POTASSIUM 4.2 mmol/L (3.5-5.1); SODIUM 134 mmol/L (136-145); TCO2 27 mmol/L (25-35)
[2019-10-18] MEDS: DULCOLAX PR SCH ×2 (09:13→20:50)
[2019-10-18] MEDS: CLINIMIX E 4.25%-5% SOLUTION 1,000 ML IV SCH ×2 (09:13→23:19)
[2019-10-18] MEDS: KEPPRA 750 MG in NS 100 ML IV SCH ×2 (09:13→20:50)
[2019-10-18] MEDS: PEPCID IV SCH ×3 (09:14→21:48)
[2019-10-18 11:02] LABS: INR 1.12; PROTIME 14.6 Seconds (11.0-16.0)
[2019-10-18] MEDS: BUSPAR PO SCH ×2 (11:10→23:18)
[2019-10-18] MEDS: DEPAKOTE SPRINKLE PO SCH ×3 (11:10→16:36)
[2019-10-18] MEDS: SENOKOT PO SCH ×3 (11:10→23:20)
[2019-10-18] MEDS: LIORESAL PO SCH ×2 (11:10→23:18)
--- NOTE | 2019-10-18 16:06 | PROGRESS NOTE ---
DATE: 10/18/2019 INTERVAL HISTORY: Patient essentially stable. Speech somewhat limited but cooperative. No new complaints. No acute events overnight. REVIEW OF SYSTEMS: Twelve point review of systems negative except as per interval history. LABS: WBC 7.5, hemoglobin 12.1, hematocrit 36.5, platelets 441,000. Sodium 134, potassium 4.2, BUN 13, creatinine 0.5, glucose 107, phosphorus 3.8. VITAL SIGNS: T-max 98.4 degrees, pulse 87, respirations 15, blood pressure 147/67, O2 saturation 97% on 2 L by nasal cannula. PHYSICAL EXAMINATION: General: No acute distress. Chronically ill-appearing. Vital signs: As above. HEENT: Normocephalic. Moist mucous membranes. Well-healed trach scar on anterior neck. Cardiovascular: Regular rate and rhythm. No murmurs noted. Pulmonary: Mildly decreased breath sounds throughout, otherwise largely clear. Abdomen: Soft, nontender, nondistended. Bowel sounds decreased but present. Extremities: Peripheral pulses intact. No clubbing or cyanosis. Neurologic: Stable contractures in all extremities. Dysarthria unchanged. No new focal deficits. Psychiatric: Awake, alert, oriented, although dysarthric speech as above. ASSESSMENT AND PLAN: 1. Aspiration pneumonia secondary to severe dysphagia. On antibiotics with cefepime. We will continue that for now. Respiratory status much improved. Almost off oxygen entirely. We will continue to wean oxygen as tolerated. 2. Acute hypoxic respiratory failure secondary to #1. Much improved. 3. Severe dysphagia secondary to traumatic brain injury as a child and subsequent sequela. GI attempted PEG placement but were unable to do so. The plan is for surgical placement of PEG tube tomorrow. 4. History of traumatic brain injury with seizure disorder. No seizures observed here. Monitor. 5. Protein calorie malnutrition. Patient on Clinimix currently. We will plan on starting tube feeds once PEG tube is in place and usable. Once patient is tolerating tube feeds, can likely be discharged home. 6. Constipation with fecal impaction on admission, now resolved. Continue bowel regimen. 7. Staphylococcus capitis bacteremia. Repeat blood cultures negative. Organism was resistant only to penicillin G. Currently on cefepime but once he is able to take p.o., can likely change to Levaquin or Omnicef per PEG. Day 8 of antibiotics. 8. Hyponatremia. Resolved. 9. Anemia. Stable. Likely anemia of chronic disease.
[2019-10-18] MEDS: LIPOSYN 20% 500 ML IV SCH (16:59)
[2019-10-18] MEDS: LOVENOX SUBQ SCH ×2 (20:50→21:17)
[2019-10-19] MEDS: CLINIMIX E 4.25%-5% SOLUTION 1,000 ML IV SCH ×2 (00:52→18:19)
[2019-10-19] MEDS: ROBAXIN 1,000 MG in NS 50 ML IV SCH ×3 (01:48→18:19)
[2019-10-19] MEDS: DUONEB (A & A) INH SCH ×6 (03:14→23:28)
[2019-10-19] MEDS: MAXIPIME 2 GM/NS 2 GM/100 ML IVPB IV SCH ×3 (05:20→21:33)
--- NOTE | 2019-10-19 07:19 | GENERAL SURGERY PROGRESS NOTE ---
DATE: 10/19/2019 SUBJECTIVE: The patient seems to be doing okay. OBJECTIVE: Vital Signs: The patient is currently afebrile. His vital signs are stable. General: No acute distress. HEENT: Normocephalic, atraumatic. Pupils equal, round, reactive to light. Mucous membranes moist. Oropharynx benign. Neck: Supple. Trachea midline. Cardiovascular: Regular rate and rhythm. Lungs: Grossly clear. Abdomen: Soft, nondistended. No previous upper abdominal scars. ASSESSMENT AND PLAN: A 54-year-old gentleman with traumatic brain injury, needing feeding conduit. Need for feeding access. At this time, will try potential percutaneous endoscopic gastrostomy tube. If unsuccessful, then will try open feeding tube. Discussed with the family, the risks, benefits, and alternatives of the procedure, risks including, but not limited to bleeding, infection, risk of anesthesia, risk of injuring colon, stomach, and other organs, risk of early dislodgement requiring surgery. All were discussed. Will proceed with surgery today. Consent has been ordered by my partner, but I did discuss the risks, benefits, and alternatives with the family. cc: Franklyn Hartman MD
[2019-10-19] MEDS: BUSPAR PO SCH ×2 (11:25→21:34)
[2019-10-19] MEDS: DEPAKOTE SPRINKLE PO SCH ×3 (11:26→18:38)
[2019-10-19] MEDS: LIORESAL PO SCH ×2 (11:26→21:34)
[2019-10-19] MEDS: SENOKOT PO SCH ×2 (11:27→21:34)
[2019-10-19] MEDS: PEPCID IV SCH ×2 (11:45→21:34)
[2019-10-19] MEDS: KEPPRA 750 MG in NS 100 ML IV SCH ×2 (11:45→21:34)
[2019-10-19] MEDS: DULCOLAX PR SCH ×2 (12:00→21:26)
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
[2019-10-19] MEDS ORDERED: NS 250 ML ONE (12:38)
[2019-10-19] MEDS ORDERED: DIPRIVAN 1% ONE ×2 (12:53→13:40)
[2019-10-19] MEDS ORDERED: FENTANYL ONE (12:53)
[2019-10-19] MEDS ORDERED: KETAMINE ONE (13:19)
[2019-10-19] MEDS ORDERED: ROBINUL ONE (13:23)
[2019-10-19] MEDS ORDERED: LABETALOL (DOSE) ONE ×2 (13:23→13:43)
[2019-10-19] MEDS ORDERED: DECADRON ONE (13:36)
[2019-10-19] MEDS ORDERED: XYLOCAINE-MPF 2% ONE (13:41)
--- NOTE | 2019-10-19 16:03 | OPERATIVE NOTE ---
PROCEDURE DATE: 10/19/2019 PREOPERATIVE DIAGNOSIS: 1. Dysphagia. 2. Malnutrition. POSTOP DIAGNOSIS: 1. Dysphagia. 2. Malnutrition. PROCEDURE: 1. EGD. 2. Placement of a percutaneous endoscopic gastrostomy tube secured to the skin at 4 cm. SURGEON: Franklyn Hartman MD. APPEALS SPECIALIST: None. ANESTHESIA: IV MAC. FINDINGS: PEG secured at 4 cm at the skin. COMPLICATIONS: None at time dictation. ESTIMATED BLOOD LOSS: 10 mL. SPECIMENS REMOVED: None. BRIEF HISTORY: A 54-year-old man with a traumatic brain injury. He has developed progressive dysphagia and malnutrition needed a feeding access. The risks, benefits, alternatives for placement of PEG tube were discussed. He had previous attempts that they could not transilluminate in a safe place felt they need surgical placement. The risks, benefits, and alternatives were discussed with the family. Risks include but not limited to bleeding, infection, risk of anesthesia, risk of injuring colon and bowel, discussed risk of early dislodgement discussed all questions answered. DESCRIPTION OF PROCEDURE: After informed consent was obtained patient brought to the operative theatre, transferred op placed supine position. IV MAC anesthesia was then performed without complication. Formal time-out was then performed confirming patient, date, procedure all in agreement. That time attention was given to the mouth. An oral bite block was inserted through which we passed EGD scope all the way into the stomach. We insufflated, we were able to transilluminate but initially was just right under the xiphoid. We elevated the head of the bed and tilted the patient up, this brought the stomach down further and made us able to transilluminate 2 cm away from the xiphoid and 2 cm underneath the costal margin. We prepped and draped the abdomen in sterile fashion. We were able to transilluminate and digital palpate a safe place. [place] that this would be safe access point. CT scan showed that the stomach was close to the abdominal wall. All these factors made it think that we could easily do this. We prepped and draped the abdomen in sterile fashion, used local anesthetic to anesthetize the skin, made a stab incision at the area, passed the needle into the skin into the abdominal wall and saw it go into the stomach, pushed a snare through this, grasped it with a snare of the EGD scope, pulled out attached the PEG tube to it and pulled it through and secured in the skin at 4 cm. We then brought the scope back in, saw that it was freely mobile and able to spin and secured in place in standard fashion. The patient tolerated the procedure well, had abdominal binder placed. cc: Franklyn Hartman MD
--- NOTE | 2019-10-19 17:02 | PROGRESS NOTE ---
DATE: 10/19/2019 INTERVAL HISTORY: The patient is going for surgical placement of feeding tube later today. No acute events overnight. No new complaints. REVIEW OF SYSTEMS: Twelve point review of systems negative except as per interval history. VITAL SIGNS: T-max 98.7 degrees, pulse 88, respirations 20, blood pressure 155/88, O2 saturation 97% on 2 L by nasal cannula. PHYSICAL EXAMINATION: General: No acute distress. Chronically ill-appearing. Vital Signs: As above. HEENT: Normocephalic. Well-healed tracheostomy scar unchanged. Cardiovascular: Regular rate and rhythm. No murmurs noted. Pulmonary: Essentially clear to auscultation bilaterally. Still with some slightly decreased breath sounds. Abdomen: Soft, nontender, nondistended. Bowel sounds present. Extremities: Peripheral pulses intact. No clubbing or cyanosis. Neurologic: Stable contractures of extremities, primarily on the left, dysarthria, stable. No new deficits. Psychiatric: Awake, alert, oriented. Speech somewhat difficult to understand but is appropriate. ASSESSMENT AND PLAN: 1. Aspiration pneumonia secondary to severe dysphagia. On antibiotics with cefepime, which we will continue. Respiratory status essentially baseline at this point. Good saturations on minimal oxygen. Continue to wean oxygen as tolerated. 2. Acute hypoxic respiratory failure secondary to #1 essentially resolved. 3. Severe dysphagia secondary to traumatic brain injury as a child and subsequent sequela. GI attempted percutaneous endoscopic gastrostomy tube placement but were unable to do so. The plan is for surgical placement percutaneous endoscopic gastrostomy tube today. May also be getting a port while he is in surgery. This will help with IV access. 4. Staphylococcus capitis bacteremia. Repeat blood cultures remain negative. Organisms resistant only to penicillin G. On cefepime currently, once a day p.o., can likely transition to Levaquin per percutaneous endoscopic gastrostomy tube, day 9 of antibiotics. 5. Malnutrition, on Clinimix currently. Plan on starting tube feeds once Surgery says that the percutaneous endoscopic gastrostomy tube is usable. Once patient is tolerating tube feeds at or near goal, he can likely be discharged home. 6. Constipation with fecal impaction, resolved. Continue bowel regimen. 7. Hyponatremia, resolved. 8. Anemia. Likely anemia of chronic disease stable. Monitor.
[2019-10-19] MEDS: LIPOSYN 20% 500 ML IV SCH (18:21)
[2019-10-19] MEDS: LOVENOX SUBQ SCH (21:34)
[2019-10-20] MEDS: ROBAXIN 1,000 MG in NS 50 ML IV SCH ×2 (01:40→10:04)
[2019-10-20] MEDS: DUONEB (A & A) INH SCH ×6 (03:54→23:38)
[2019-10-20] MEDS: MAXIPIME 2 GM/NS 2 GM/100 ML IVPB IV SCH ×3 (03:56→20:41)
[2019-10-20 06:28] LABS: AGAP 16; BUN 17 mg/dL (8-22); CALCIUM 9.4 mg/dL (8.8-10.2); CHLORIDE 95 mmol/L (98-107); COSMO 268; CREATININE 0.4 mg/dL (0.7-1.2); ESTIMATED GFR > 60; GLUCOSE 125 mg/dL (70-104); POTASSIUM 4.2 mmol/L (3.5-5.1); SODIUM 132 mmol/L (136-145); TCO2 21 mmol/L (25-35)
[2019-10-20 06:31] LABS: BASO# 0.01 X1000 (0.0-0.2); BASO% 0.1 % (0.0-0.8); HEMATOCRIT 35.4 % (42.0-52.0); HEMOGLOBIN 11.7 g/dL (14.0-18.0); LYMPH# 1.14 X1000 (1.2-3.4); LYMPH% 8.5 % (20.5-51.1); MCH 27.9 PG (27-31); MCHC 33.1 g/dL (33-37); MCV 84.5 FL (81-99); MONO# 0.95 X1000 (0.11-0.59); MONO% 7.1 % (1.7-9.3); MPV 9.4 FL (7.4-10.4); PLT 483 X1000 (130-400); RBC 4.19 XMIL (4.7-6.1); RDW 12.2 % (11.5-14.5); WBC 13.44 X1000 (4.8-10.8)
[2019-10-20] MEDS: CLINIMIX E 4.25%-5% SOLUTION 1,000 ML IV SCH (06:58)
[2019-10-20 06:59] LABS: MAGNESIUM 1.6 mg/dL (1.5-2.7); PHOSPHORUS 3.8 mg/dL (2.7-4.5)
[2019-10-20 08:13] LABS: BANDS 2 % (0-1); LYMPHS 2 % (21-51); MONO 8 % (1-9); SEGS 88 % (42-75)
[2019-10-20] MEDS: LIORESAL PO SCH ×2 (10:03→20:41)
[2019-10-20] MEDS: DEPAKOTE SPRINKLE PO SCH ×3 (10:03→18:25)
[2019-10-20] MEDS: KEPPRA 750 MG in NS 100 ML IV SCH ×2 (10:04→20:41)
[2019-10-20] MEDS: SENOKOT PO SCH ×2 (10:04→20:42)
[2019-10-20] MEDS: SODIUM CHLORIDE 0.9% INJ SCH (10:04)
[2019-10-20] MEDS: PEPCID IV SCH ×2 (10:04→21:56)
[2019-10-20] MEDS: BUSPAR PO SCH ×2 (10:04→20:41)
[2019-10-20] MEDS: DULCOLAX PR SCH ×2 (10:05→20:41)
--- NOTE | 2019-10-20 10:37 | GENERAL SURGERY PROGRESS NOTE ---
DATE: 10/20/2019 The patient seems to be doing okay. He had a PEG tube placed yesterday. We are going to start tube feeds today. It seems to be going okay. No major issues reported by nursing staff. Mother in the room says no major issues also. cc: Franklyn Hartman MD
--- NOTE | 2019-10-20 14:45 | PROGRESS NOTE ---
DATE: 10/20/2019 INTERVAL HISTORY: Patient doing very well with bolus tube feeds. No complaints. No acute events overnight. REVIEW OF SYSTEMS: Twelve point review of systems negative except as per interval history. LABS: WBC 13.4, hemoglobin 11.7, hematocrit 35.4, platelets 483,000. Sodium 132, potassium 4.2, BUN 17, creatinine 0.4, glucose 125, phosphorus 3.8, magnesium 1.6. VITAL SIGNS: T-max 99.4 degrees, pulse 102, respirations 20, blood pressure 134/61, O2 saturation 98% on room air. PHYSICAL EXAMINATION: General: No acute distress. Chronically ill-appearing. Vital signs: As above. HEENT: Normocephalic. Well-healed tracheostomy scar, stable. Cardiovascular: Regular rate and rhythm. No murmurs noted. Pulmonary: Clear to auscultation bilaterally. Abdomen: Soft, nontender, nondistended. Bowel sounds positive. PEG tube in place. Extremities: Peripheral pulses intact. No clubbing or cyanosis. Neurologic: Stable contractures of extremities, mostly on the left. Dysarthria, stable. Psychiatric: Awake, alert, oriented. Some difficulty with speech, but content is appropriate. ASSESSMENT AND PLAN: 1. Aspiration pneumonia secondary to severe dysphagia. On antibiotics with cefepime which we will continue for now. Plan is to transition to Levaquin on discharge which can be given per PEG tube. Day 10 of antibiotics. 2. Acute hypoxic respiratory failure. Resolved. 3. Staphylococcus capitis bacteremia. Repeat blood cultures remain negative. Organism resistant only to penicillin G. On cefepime as above with transition to Levaquin on discharge. 4. Severe dysphagia secondary to traumatic brain injury as a child and subsequent sequela. Successful PEG tube placement by Surgery yesterday. Has been working well for bolus feeds thus far. Will stop Clinimix since he is taking good enteric feeds. If he continues to do well and we can get him set up with home health, we will hopefully be able to discharge in the next 24 to 48 hours. 5. Malnutrition. On adequate tube feeds now, as above. 6. Constipation with fecal impaction, resolved. Continue bowel regimen. 7. Hyponatremia. Mild and stable. Monitor. 8. Anemia, stable. Likely anemia of chronic disease.
[2019-10-20] MEDS: LOVENOX SUBQ SCH (20:42)
[2019-10-21] MEDS: DUONEB (A & A) INH SCH ×6 (03:30→22:47)
[2019-10-21] MEDS: MAXIPIME 2 GM/NS 2 GM/100 ML IVPB IV SCH ×3 (03:55→21:57)
--- NOTE | 2019-10-21 05:46 | GENERAL SURGERY PROGRESS NOTE ---
DATE: 10/21/2019 Discussed with the nurse, the patient is undergoing bolus feeding, which he seems to be tolerating okay. No major issues reported by the nursing staff. We will follow peripherally and be available if needed. cc: Franklyn Hartman MD
[2019-10-21 08:40] LABS: AGAP 10; BUN 14 mg/dL (8-22); CALCIUM 9.1 mg/dL (8.8-10.2); CHLORIDE 97 mmol/L (98-107); COSMO 265; CREATININE 0.5 mg/dL (0.7-1.2); ESTIMATED GFR > 60; GLUCOSE 106 mg/dL (70-104); MAGNESIUM 1.6 mg/dL (1.5-2.7); PHOSPHORUS 2.9 mg/dL (2.7-4.5); POTASSIUM 3.8 mmol/L (3.5-5.1); SODIUM 132 mmol/L (136-145); TCO2 25 mmol/L (25-35)
[2019-10-21] MEDS: BUSPAR PO SCH ×2 (09:14→21:57)
[2019-10-21] MEDS: SENOKOT PO SCH ×2 (09:14→21:52)
[2019-10-21] MEDS: LIORESAL PO SCH ×2 (09:15→21:57)
[2019-10-21] MEDS: KEPPRA 750 MG in NS 100 ML IV SCH ×2 (09:15→21:57)
[2019-10-21] MEDS: DEPAKOTE SPRINKLE PO SCH ×2 (09:15→14:22)
[2019-10-21] MEDS: DULCOLAX PR SCH ×2 (09:15→21:52)
[2019-10-21] MEDS: PEPCID IV SCH ×3 (09:18→21:57)
[2019-10-21] MEDS: SODIUM CHLORIDE 0.9% INJ SCH ×2 (09:20→21:57)
--- NOTE | 2019-10-21 12:15 | PROGRESS NOTE ---
DATE: 10/21/2019 INTERVAL HISTORY: Patient doing well with tube feeds. No acute events overnight. No new complaints. Awaiting insurance approval of home health tube feeds, etc. REVIEW OF SYSTEMS: A 12-point review of systems is negative except as per interval history. LABS: Sodium 132, potassium 3.8, BUN 14, creatinine 0.5, glucose 106. VITAL SIGNS: T-max 98.9 degrees, pulse 89, respirations 18, blood pressure 135/67, O2 saturation 97% on room air. PHYSICAL EXAMINATION: General: No acute distress. Chronically ill appearing. Vitals: As above. HEENT: Normocephalic. Well-healed tracheostomy scar unchanged. Cardiovascular: Regular rate and rhythm. No murmurs noted. Pulmonary: Clear to auscultation bilaterally. Abdomen: Soft, nontender, nondistended. Bowel sounds positive. PEG tube in place. Extremities: Peripheral pulses intact. No clubbing or cyanosis. Neurologic: Stable contractures of the extremities, primarily on the left side. Dysarthria is stable. Psychiatric: Awake, alert, oriented. Some difficulty with speech, but all content is appropriate. Patient is cooperative. ASSESSMENT AND PLAN: 1. Aspiration pneumonia secondary to severe dysphagia. On antibiotics, transitioning on antibiotics with cefepime with plan to transition to Levaquin via PEG on discharge, day 11 of 14 of antibiotics. 2. Acute hypoxemic respiratory failure, resolved. 3. Staphylococcus capitis bacteremia. Blood cultures remain negative. Organism resistant only to penicillin. On cefepime as above with transition to Levaquin on discharge. 4. 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 Successful PEG tube placement by Surgery on 10/19/2019. Doing well with tube feeds. Attempting to set up home health. Will need speech therapy to hopefully be able to eat again in the future, but they will have to go to therapy as Medicaid will not cover speech therapy coming out with home health. 5. Malnutrition on adequate tube feeds now, as above. 6. Constipation with fecal impaction, resolved. 7. Hyponatremia, mild, stable. 8. Anemia, likely anemia of chronic disease. Stable. 9. Disposition. The patient is medically essentially stable for discharge but awaiting insurance approval of home health tube feeds, etc.
[2019-10-21] MEDS: DEPAKENE LIQUID PO SCH (16:47)
[2019-10-21] MEDS: LOVENOX SUBQ SCH (21:57)
[2019-10-22] MEDS: DUONEB (A & A) INH SCH ×3 (03:17→11:25)
[2019-10-22] MEDS: MAXIPIME 2 GM/NS 2 GM/100 ML IVPB IV SCH (04:42)
[2019-10-22 05:33] LABS: AGAP 13; ALB/GLOB RATIO 1.2; ALBUMIN 3.5 g/dL (3.5-5.0); ALKALINE PHOSPHATASE 39 U/L (32-122); BUN 10 mg/dL (8-22); CHLORIDE 97 mmol/L (98-107); COSMO 267; CREATININE 0.4 mg/dL (0.7-1.2); ESTIMATED GFR > 60; GLUCOSE 88 mg/dL (70-104); GOT 11 U/L (10-34); GPT 10 U/L (10-44); MAGNESIUM 1.5 mg/dL (1.5-2.7); PHOSPHORUS 3.3 mg/dL (2.7-4.5); SODIUM 134 mmol/L (136-145); TCO2 24 mmol/L (25-35); TOTAL BILIRUBIN 0.52 mg/dL (0.20-1.00); TOTAL PROTEIN 6.4 g/dL (6.3-8.3)
[2019-10-22 08:12] VITALS: BP 151/65
[2019-10-22] MEDS: PEPCID IV SCH (10:21)
[2019-10-22] MEDS: SODIUM CHLORIDE 0.9% INJ SCH (10:26)
[2019-10-22] MEDS: KEPPRA 750 MG in NS 100 ML IV SCH (10:27)
[2019-10-22] MEDS: LIORESAL PO SCH (10:29)
[2019-10-22] MEDS: DULCOLAX PR SCH (10:29)
[2019-10-22] MEDS: BUSPAR PO SCH (10:29)
[2019-10-22] MEDS: DEPAKENE LIQUID PO SCH (10:30)
[2019-10-22] MEDS: SENOKOT PO SCH (10:30)
--- NOTE | 2019-10-22 13:26 | DISCHARGE SUMMARY ---
ADMISSION DATE: 10/10/2019 DISCHARGE DATE: 10/22/2019 DISCHARGE DISPOSITION: Home with home care. Tariff Clerk has set up feeding through PEG tube. The patient was advised to follow up with regular provider for speech therapy. DISCHARGE CONDITION: Hemodynamically stable. He is alert. He follows simple commands. He does not engage in meaningful conversation, though. His PEG tube has been functioning well. DISCHARGE DIAGNOSES: 1. Bilateral aspiration pneumonia due to severe dysphagia. 2. Acute hypoxic respiratory failure due to bilateral pneumonia. 3. Staphylococcus capitis bacteremia of unclear source. 4. Severe progressive esophageal dysphagia due to traumatic brain injury in 1969. 5. Malnutrition. 6. Constipation with fecal impaction. 7. Hyponatremia. 8. Anemia of chronic disease. OTHER DIAGNOSES: 1. History of traumatic brain injury in 1969. 2. History of post concussion seizure and epilepsy. 3. History of progressive dysphagia. CONSULTATION DURING HOSPITALIZATION: Gastroenterology Dr. Baxter. General surgeon, Dr. Hartman. DISCHARGE MEDICATIONS: 1. Baclofen 10 mg t.i.d. 2. Buspirone 20 mg b.i.d. 3. Depakote 500 mg through PEG tube t.i.d. 4. Famotidine 20 mg b.i.d. 5. Levaquin 500 mg per PEG tube daily for 4 days. 6. Senna 1 tablet PEG tube b.i.d. VITALS: At the time of discharge, temperature 98 degrees, pulse 90, respiratory rate 16, blood pressure 150/65 saturating 100% on room air. PHYSICAL EXAMINATION: Not in acute distress. Oral cavity is moist. He is moaning. He keeps his mouth open. Pupils are bilaterally equal reacting to light. Air intake bilaterally equal. No wheeze, rhonchi, crackles. Cardiovascular: S1 S2 normal. No murmur or gallop. Abdomen: Soft, nontender. He has an abdominal binder. I could see the PEG tube which there is no erythema or discharge or blood around it. Soft abdomen. He does not have lower extremity edema. He did not have a urine catheter. He did have a right-sided PICC line, which is to be removed. He is alert. HOSPITAL COURSE SUMMARY: Mr. Kelly is a 54-year-old man who initially presented on 10/10/2019 with chief complaints of fever, chills, vomiting, shortness of breath. On presentation, he was found to have bilateral aspiration pneumonia, thought to be secondary to dysphagia, and also acute hypoxic respiratory failure requiring 5 to 6 L of oxygen. He also had temperature of 100.8 degrees and pulse of 130 suggestive of sepsis. He was admitted for sepsis and acute hypoxic respiratory failure due to pneumonia and was started on broad-spectrum intravenous antibiotics. Gastroenterology was consulted for evaluation of his dysphagia and 2 attempts were made to perform PEG tube placement, however on first attempt on 10/13/2019, he had started becoming hypoxic, so it was aborted and on 2nd attempt on 10/16/2019, they could not transilluminate properly, so a PEG tube was not placed and general surgery was consulted. He ultimately underwent PEG tube placement on 10/19/2019 by our General Surgical team, which he tolerated well and currently he has been tolerating tube feeds well. Tariff Clerk has been consulted and the patient will be discharged on home tube feeds. At the time of discharge, the patient and his family were provided detailed discharge instructions including completing the antibiotics. I had discussed with him about the risks associated with Levaquin like decreasing seizure threshold, however patient's major seizure episode was almost 1- 1/2 years ago and since then, the patient did not have a major seizure episode. The family states that occasionally he starts feeling tremulous and he himself states that he is having seizure, but they help him calm down and get better, which to me does not sound like seizure. They were discussed about the risks of increased seizure associated with Levaquin and provided a second option would be to keep him inside the hospital for 3 to 4 more days for IV antibiotics and they decided to just take the oral Levaquin. I explained to them about coming back to the emergency room if they notice increasing frequency of seizure. LABS: During hospital admission and discharge, his WBC [id number]. His hemoglobin is 11.7, platelet 483,000. His BUN is 10, creatinine 0.4. Microbiology, his blood culture on October 10 were growing Staphylococcus capitis which were sensitive to Levaquin though his fever episode had subsided on 10/12/2019. Repeat blood cultures were not drawn until 10/17/2019 so considering the risk versus benefit associated with Levaquin it was decided to treat it for 4 more days. More than 30 minutes of time was spent discharging the patient. Plan of care was extensively discussed with the patient and in fact, his family members, including his grandmother. cc: Spencer Duong MD MTDD
== END 2019-10-22 16:01 | disposition home health service (06) | DRG 177 ==
LOC: SUPCPDRO → ED 17:31 → SUATTDRO 21:37 → EDIPHOLD 21:37 → 2N 10-11 02:04 → 1N 10-13 11:02
PROVIDERS: ATTEND Internal Medicine